=== PATIENT | male | born 1985 ===

== ENCOUNTER 2024-09-14 18:08 | Emergency (ER) | payer OTHER ==
[~2024-09-14] VITALS: Ht 180.3 cm; Wt 94.0 kg
[2024-09-14 18:20] VITALS: BP 132/78; PULSE 63; RESP 16; TEMP 98.3; O2SAT 98
[2024-09-14 21:43] LABS: APPEARANCE,URINE CLEAR (CLEAR); BILIRUBIN,URINE NEGATIVE (NEGATIVE); COLOR,URINE YELLOW (YELLOW); GLUCOSE, URINE (UA) NEGATIVE (NEGATIVE); KETONES,URINE TRACE mg/dL (NEGATIVE); LEUKOCYTE ESTERASE ,URINE NEGATIVE (NEGATIVE); NITRATE,URINE NEGATIVE (NEGATIVE); OCCULT BLOOD,URINE MODERATE (NEGATIVE); PROTEIN,URINE 30-70 mg/dL (NEGATIVE); SPECIFIC GRAVITIY, URINE 1.031 (1.003-1.030); UROBILINOGEN,URINE <=1.0 mg/dL (<=1.0)
[2024-09-14 21:59] LABS: BACTERIA,URINE Few /HPF (None Seen); MUCUS,URINE Few LPF (None Seen); SQUAMOUS EPITHELIAL CELL,UR Few /LPF (None Seen); WBC,URINE 0-2 /HPF (0-5)
[2024-09-14 22:14] LABS: BASOPHILS % (AUTO) 0.4 % (0.0-2.0); HEMOGLOBIN 14.7 g/dL (13.5-17.5); LYMPHOCYTES # (AUTO) 2.7 K/uL (1.0-4.8); MEAN CORPUSCULAR HEMOGLOBIN 28.7 pg (26.0-34.0); MEAN CORPUSCULAR HGB CONC 33.3 G/dL (31.0-37.0); MEAN CORPUSCULAR VOLUME 86 fL (80-100); MONOCYTES # (AUTO) 1.1 K/uL (0.1-1.0); MONOCYTES % (AUTO) 7.8 % (2.0-9.0); NEUTROPHILS # (AUTO) 10.3 K/uL (1.8-7.7); NEUTROPHILS % (AUTO) 71.8 % (40.0-70.0); PLATELET COUNT (AUTO) 185 K/uL (150-450); RED CELL DISTRIBUTION WIDTH 14.2 % (11.5-14.5); WHITE BLOOD COUNT (AUTO) 14.3 K/uL (4.5-11.0)
[2024-09-14 22:32] LABS: ANION GAP 6 mmol/L (8-16); CALCIUM, TOTAL 8.6 mg/dL (8.8-10.5); CARBON DIOXIDE 28 mmol/L (22-29); CHLORIDE 104 mmol/L (98-107); CREATININE 1.24 mg/dL (0.60-1.30); GLOMERULAR FILTR. RATE CALC > 60 mL/min (>60); GLUCOSE,RANDOM 111 mg/dL (70-110); SODIUM SERUM 138 mmol/L (136-145); UREA NITROGEN, BLOOD 22 mg/dL (7-18)
[2024-09-14 22:33] LABS: LIPASE 66 U/L (16-77)
[2024-09-14] MEDS: SODIUM CHLORIDE 0.9% 1,000 ML IV ONE (22:46)
[2024-09-14] MEDS: KETOROLAC TROMETHAMINE 30 MG/ML VIAL IVP ONE (22:47)
[2024-09-15] MEDS ORDERED: TRAM50TA5 PO (00:54)
== END 2024-09-15 00:58 | disposition home or self-care (01) ==
LOC: EMS 18:08
DX: N20.1 Calculus of ureter (principal); R10.32 Left lower quadrant pain; Z87.442 Personal history of urinary calculi
CPT/HCPCS: 99285; 74176; 96374; 96361; 80048; 81001; 83690; 85025; 36415; J1885; J7030